=== PATIENT | female | born 1985 | race Caucasian/White ===

== ENCOUNTER 2017-06-09 20:06 | Emergency (ER) | payer SELFPAY ==
[~2017-06-09] VITALS: Ht 154.9 cm; Wt 99.8 kg
[2017-06-09 20:10] VITALS: BP_SYST 136
[2017-06-09] MEDS ORDERED: KETOROLAC TROMETHAMINE 60 MG/2 ML VIAL IM ONE (21:00)
[2017-06-09 21:12] LABS: BILIRUBIN,URINE NEGATIVE (NEGATIVE); BLOOD, URINE 3+ (NEGATIVE); CLARITY/URINE SLIGHTLY HAZY (CLEAR); COLOR,URINE YELLOW (YELLOW); GLUCOSE,URINE NEGATIVE (NEGATIVE); KETONES,URINE NEGATIVE (NEGATIVE); LEUKOCYTE ESTERASE ,URINE NEGATIVE (NEGATIVE); NITRITE, URINE NEGATIVE (NEGATIVE); PROTEIN URINE NEGATIVE (NEGATIVE); UROBILINOGEN,URINE 0.2 (0.2-1.0)
[2017-06-09 21:25] LABS: BACTERIA,URINE FEW /HPF (None Seen); MUCUS,URINE 1+ /LPF (None Seen); RBC,URINE >100 /HPF (0-3); WBC,URINE 0-3 /HPF (0-3)
[2017-06-09 21:35] VITALS: BP_SYST 136
== END 2017-06-09 21:35 | disposition home or self-care (01) ==
LOC: SED 20:06
DX: M54.5 Low back pain (principal)
CPT/HCPCS: 81000; 81025; 96372; 99283; J1885

== ENCOUNTER 2019-08-09 13:25 | Emergency (ER) | payer SELFPAY ==
[~2019-08-09] VITALS: Ht 152.4 cm; Wt 99.8 kg
[2019-08-09 13:40] VITALS: BP_SYST 147
--- NOTE | 2019-08-09 16:00 | NUR ---
Patient to ER bed 07 to gown for evaluation. Side rails up.
--- NOTE | 2019-08-09 16:25 | NUR ---
ER ARBEN Holder at bedside examining patient.
[2019-08-09] MEDS ORDERED: KETOROLAC TROMETHAMINE 60 MG/2 ML VIAL IM ONE (16:30)
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
--- NOTE | 2019-08-09 16:43 | NUR ---
Administered Toradol 60mg IM as ordered by MD. Patient tolerated the medication well.
--- NOTE | 2019-08-09 18:05 | NUR ---
Patient given written and verbal discharge instructions and verbalizes understanding. ER MD discussed with patient the results and treatment provided. Patient in stable condition. ID arm band removed. IV catheter removed intact and dressing applied, no active bleeding. Rx of Ibuprofen given. Patient educated on pain management and to follow up with PMD. Pain Scale 0/10. Opportunity for questions provided and answered. Medication side effect fact sheet provided.
[2019-08-09 18:22] VITALS: BP_SYST 147
== END 2019-08-09 18:22 | disposition home or self-care (01) ==
LOC: SED 13:25
DX: S39.012A Strain of muscle, fascia and tendon of lower back, initial encounter (principal); S56.911A Strain of unspecified muscles, fascia and tendons at forearm level, right arm, initial encounter; R03.0 Elevated blood-pressure reading, without diagnosis of hypertension; K21.9 Gastro-esophageal reflux disease without esophagitis; V49.40XA Driver injured in collision with unspecified motor vehicles in traffic accident, initial encounter; Y93.89 Activity, other specified; Y92.481 Parking lot as the place of occurrence of the external cause; Y99.8 Other external cause status
CPT/HCPCS: 29125; 72100; 73090; 81025; 96372; 99283; J1885

== ENCOUNTER 2022-04-17 09:28 | Emergency (ER) | payer SELFPAY ==
[~2022-04-17] VITALS: Ht 152.4 cm; Wt 94.3 kg
[2022-04-17 09:57] VITALS: BP_SYST 140
--- NOTE | 2022-04-17 10:02 | NUR ---
Patient to ER bed 6 to gown for evaluation. Side rails up. Report given to Eva GONZALEZ.
--- NOTE | 2022-04-17 10:08 | NUR ---
RECEIVED PT FROM LISA THORNE. PT IS HERE D/T BILATERAL UPPER ABDOMEN PAIN 04/21. DENIES N/V/D/C. PT HAS NO MED HX. PT IS AAOX4. ON R/A. NO COUGH OR SOB. ABDOMEN ROUND, SOFT, NONDISTENDED. BOWEL SOUNDS ACTIVE X4. SKIN CDI WITH NO EDEMA. DISTAL PULSES NORMAL.
--- NOTE | 2022-04-17 10:10 | NUR ---
DR. HUMPHREY AT BEDSIDE TO ASSESS PT.
[2022-04-17] MEDS ORDERED: KETOROLAC TROMETHAMINE 30 MG VIAL IVP ONE (10:30)
[2022-04-17] MEDS ORDERED: NACL 0.9% 1,000 ML IV ONE (10:30)
[2022-04-17 11:01] LABS: BASOPHILS % (AUTO) 0.4 % (0.0-2.0); EOSINOPHILS # (AUTO) 0.1 K/uL (0.0-0.4); EOSINOPHILS % (AUTO) 1.2 % (0.0-4.0); HEMATOCRIT 30.9 % (36-48); HEMOGLOBIN 10.2 g/dL (12.0-16.0); LYMPHOCYTES # (AUTO) 1.4 K/uL (1.0-5.5); LYMPHOCYTES % (AUTO) 22.3 % (20.5-51.5); MEAN CORPUSCULAR HEMOGLOBIN 23 pg (27-31); MEAN CORPUSCULAR HGB CONC 33 % (32-36); MEAN CORPUSCULAR VOLUME 69 fL (79.0-98.0); MONOCYTES # (AUTO) 0.2 K/uL (0.0-1.0); MONOCYTES % (AUTO) 3.5 % (1.7-9.3); NEUTROPHILS # (AUTO) 4.5 K/uL (1.8-7.7); NEUTROPHILS % (AUTO) 72.6 % (40.0-70.0); PLATELET COUNT (AUTO) 224 K/uL (130-430); RED BLOOD CELL COUNT(AUTO) 4.47 MIL/uL (4.2-6.2); RED CELL DISTRIBUTION WIDTH 17.2 % (9.0-15.0); WHITE BLOOD COUNT (AUTO) 6.2 K/uL (4.8-10.8)
--- NOTE | 2022-04-17 11:03 | NUR ---
Urine collected and sent to lab. Urine negative.
[2022-04-17 11:13] LABS: CALCIUM 8.8 mg/dL (8.4-11.0); CREATININE 0.78 mg/dL (0.55-1.30); POTASSIUM 3.7 mmol/L (3.5-5.1)
[2022-04-17 11:19] LABS: ALBUMIN 3.3 g/dL (3.4-4.8); TOTAL BILIRUBIN 0.5 mg/dL (0.0-1.0)
--- NOTE | 2022-04-17 11:21 | NUR ---
# 20 gauge angiocath placed to right AC. Use of asceptic technique. Opsite placed over site. Blood return noted. Flushed with 10 cc of normal saline. No evidence of infiltration noted. Patient tolerated well.
--- NOTE | 2022-04-17 11:24 | NUR ---
IV CATH PLACE TO RAC 20 PLACED. 1000ML NS BOLUS INITIATED. TORADOL IVP GIVEN.
[2022-04-17 11:28] LABS: BILIRUBIN,URINE NEGATIVE (NEGATIVE); BLOOD, URINE NEGATIVE (NEGATIVE); CLARITY/URINE CLEAR (CLEAR); COLOR,URINE YELLOW (YELLOW); GLUCOSE,URINE NEGATIVE (NEGATIVE); KETONES,URINE NEGATIVE (NEGATIVE); LEUKOCYTE ESTERASE ,URINE NEGATIVE (NEGATIVE); NITRITE, URINE POSITIVE (NEGATIVE); PROTEIN URINE NEGATIVE (NEGATIVE); UROBILINOGEN,URINE 0.2 (0.2-1.0)
[2022-04-17] MEDS ORDERED: CEPH-548 PO (12:04)
[2022-04-17] MEDS ORDERED: ACETAMINOPHEN 500 MG TABLET PO ONE (12:15)
[2022-04-17 12:16] LABS: BACTERIA,URINE FEW /HPF (None Seen); MUCUS,URINE 1+ /LPF (None Seen); RBC,URINE 0-3 /HPF (0-3); WBC,URINE 0-3 /HPF (0-3)
--- NOTE | 2022-04-17 13:00 | NUR ---
Patient given written and verbal discharge instructions and verbalizes understanding. ER MD discussed with patient the results and treatment provided. Patient in stable condition. ID arm band removed. IV catheter removed intact and dressing applied, no active bleeding. Rx of ROCHEPHIN given. Patient educated on pain management and to follow up with PMD. Pain Scale0/10. Opportunity for questions provided and answered. Medication side effect fact sheet provided.
--- NOTE | 2022-05-02 09:18 | NUR ---
ADDENDUM: TORADOL IVP 30MG START TIME: 11:23AM END TIME: 11:24 AM
== END 2022-04-17 13:00 | disposition home or self-care (01) ==
LOC: SED 09:28
DX: N39.0 Urinary tract infection, site not specified (principal); R10.11 Right upper quadrant pain; R06.02 Shortness of breath
CPT/HCPCS: 99283; 96374; 80053; 81000; 83690; 85025; 87086; 36415; 81025; J1885

== ENCOUNTER 2022-07-11 10:37 | Emergency (ER) | payer SELFPAY ==
[~2022-07-11] VITALS: Ht 152.4 cm; Wt 90.7 kg
[2022-07-11 10:37] VITALS: BP_SYST 137
[~2022-07-11 10:37] MED LIST: CEPH-548 PO
--- NOTE | 2022-07-11 10:37 | NUR ---
BROUGHT BACK TO BED #7 AND TRIAGED. REPORT GIVEN TO ALISON
--- NOTE | 2022-07-11 10:56 | NUR ---
C/C Left Ankle pain x 2 day, denies fall or trauma to area. No swelling noted. Patient AOx4, no acute distress and or discomfort.
[2022-07-11 11:49] LABS: BASOPHILS % (AUTO) 0.3 % (0.0-2.0); EOSINOPHILS # (AUTO) 0.1 K/uL (0.0-0.4); EOSINOPHILS % (AUTO) 1.3 % (0.0-4.0); HEMATOCRIT 31.5 % (36-48); LYMPHOCYTES # (AUTO) 1.5 K/uL (1.0-5.5); LYMPHOCYTES % (AUTO) 22.4 % (20.5-51.5); MEAN CORPUSCULAR VOLUME 68 fL (79.0-98.0); MONOCYTES # (AUTO) 0.2 K/uL (0.0-1.0); MONOCYTES % (AUTO) 3.6 % (1.7-9.3); NEUTROPHILS % (AUTO) 72.4 % (40.0-70.0); PLATELET COUNT (AUTO) 250 K/uL (130-430); RED BLOOD CELL COUNT(AUTO) 4.66 MIL/uL (4.2-6.2); RED CELL DISTRIBUTION WIDTH 17.7 % (9.0-15.0); WHITE BLOOD COUNT (AUTO) 6.9 K/uL (4.8-10.8)
[2022-07-11 13:16] LABS: ALBUMIN 3.4 g/dL (3.4-4.8); CALCIUM 8.9 mg/dL (8.4-11.0); CREATININE 0.78 mg/dL (0.55-1.30); POTASSIUM 3.7 mmol/L (3.5-5.1); TOTAL BILIRUBIN 0.8 mg/dL (0.0-1.0)
[2022-07-11 13:17] LABS: C-REACTIVE PROTEIN QUANT 0.4 mg/dL (0-0.5)
[2022-07-11] MEDS ORDERED: IBUP-1969 PO (14:04)
[2022-07-11] MEDS ORDERED: HYDR-3917 PO (14:04)
--- NOTE | 2022-07-11 14:14 | NUR ---
Patient given written and verbal discharge instructions and verbalizes understanding. ER MD discussed with patient the results and treatment provided. Patient in stable condition. ID arm band removed. Patient educated on pain management and to follow up with PMD. Opportunity for questions provided and answered. Medication side effect fact sheet provided.
[2022-07-11 14:15] VITALS: BP_SYST 137
[2022-07-11 18:16] LABS: ERYTHROCYTE SEDIMENTATION RATE 14 MM/HR (0-20)
== END 2022-07-11 14:14 | disposition home or self-care (01) ==
LOC: SED 10:37
DX: M25.572 Pain in left ankle and joints of left foot (principal); K21.9 Gastro-esophageal reflux disease without esophagitis; Z79.899 Other long term (current) drug therapy
CPT/HCPCS: 36415; 80053; 84550; 85025; 85651-TC; 86140; 99284